=== PATIENT | female | born 1945 | race Caucasian/White ===

== ENCOUNTER 2021-02-22 13:33 | Inpatient (IN) | payer MEDICARE ==
[~2021-02-22] VITALS: Ht 167.6 cm; Wt 49.7 kg
[2021-02-22] MEDS ORDERED: MIRALAX *UNIT DOSE* 17GM PACKET PO PRN (14:50)
[2021-02-22] MEDS ORDERED: BISACODYL 10 MG SUPP PR PRN (14:50)
[2021-02-22] MEDS ORDERED: ACETAMINOPHEN TAB 650MG DOSE (2X325MG) PO PRN (14:50)
[2021-02-22 15:55] VITALS: BP 165/71
[2021-02-22] MEDS ORDERED: BRIL90TA PO (15:55)
[2021-02-22] MEDS ORDERED: LEVO88TA3 PO (15:55)
[2021-02-22] MEDS ORDERED: TREL1AER INH (15:55)
[2021-02-22] MEDS ORDERED: D3 S1CAP3 PO (15:55)
[2021-02-22] MEDS ORDERED: LOSA25TA14 PO (15:55)
[2021-02-22] MEDS ORDERED: METO1TAB32 PO (15:55)
[2021-02-22] MEDS ORDERED: FAMO1TAB11 PO (15:55)
[2021-02-22] MEDS ORDERED: ATOR80TA59 PO (15:55)
[2021-02-22] MEDS ORDERED: VENTAER INH (15:56)
--- NOTE | 2021-02-22 16:03 | HPEPDOC ---
Word Processing Supervisor Note DATE OF ADMISSION: 02-22-21 DATE OF SERVICE: 02-23-21 TIME OF ADMISSION: Please refer to physician's admission order. SOURCE OF ADMISSION INFORMATION: [facility] record and patient CHIEF COMPLAINT: stroke s.p right CEA HISTORY OF PRESENT ILLNESS: 75 F pmh COPD, HTN, DM, CAD s/p stents, Hypothryoidism, laryngeal cancer s/p laryngeal/neck radiation, chronic dysphagia, barretts espophagus with multiple esophageal dilatations was admitted to [facility] on 02-06-21 with left sided weakness and diagnosed with stroke in the setting of right ICA stenosis. MRI showed, "Findings consistent with small distal branch acute, likely embolic ischemic infarct involving the right frontoparietal and parieto-occipital regions. Few small scattered acute infarct in the deep white matter tract is also present." She underwent a right ICA stenting on 02-15-21 and started on ASA and Brillinta for 6 months. She developed an aspiration PNA requiring supplemental oxygen and started on IV zosyn with CT thorax showing a right upper lobe mass with bronchus obstruction. She was instructed t follow up with her thoracic surgeon in the [facility] for wedge resection vs lobectomy in February 2021. She had mobility and ADL impairments and deemed medically appropriate for discharge to ARU on 02-22-21. REVIEW OF SYSTEMS: The following is a completed review of systems and has been reviewed. Review of systems otherwise unremarkable. PAIN: Patient self reports no pain EYES: No recent vision changes. EARS, NOSE, & THROAT:+ dysphagia CARDIOVASCULAR: Denies chest pain or palpitations PULMONARY: Denies shortness of breath GASTROINTESTINAL: Denies constipation/diarrhea GENITOURINARY: denies dysuria MUSCULOSKELETAL: left sided paresis NEUROLOGICAL: left sided paresis HEMATOLOGICAL: denies easy bruising SKIN:intact PSYCHIATRIC: Unremarkable All other review of systems found to be negative. PAST MEDICAL HISTORY: as per HPI PAST SURGICAL HISTORY: As per HPI and tonsillectomy ALLERGIES: Please see below. MEDICATIONS: Please see below. SOCIAL HISTORY: no etoh/illicit drugs/smoking DIET: level 2 and nectar PHYSICAL EXAMINATION: VITAL SIGNS: Please see below. GENERAL: Pleasant and cooperative. No acute distress. thin HEENT: PERRL. Extraocular movements intact. Clear conjunctiva CARDIOVASCULAR: Regular rate and rhythm. No murmurs, rubs, or gallops LUNGS: Clear to auscultation bilaterally. No wheezes. No rhonchi ABDOMEN: Soft, nontender, nondistended. Positive bowel sounds. Normal active bowel sounds NEUROLOGICAL: Alert and oriented times three. Cranial nerves II through XII grossly intact. Sensation decreased to light touch with extinction EXTREMITIES: 5\\5 strength bilateral RUE, left elbow flexor/exteniosr 3/5, wrist 1/5, fire management specialist 2/5 5\\5 strength right lower extremity. 5-/5 strength in left lower extremity. LABORATORY DATA: Please see below. IMAGING:Imaging documentation personally reviewed by record FUNCTIONAL STATUS: Premorbid: Independent with all activities of daily life as well as mobility On Admission: contact guard- standby for bed mobility, ambulation, dressing, toileting, functional transfers GOALS: Mod-I for bed mobility, functional transfers, ambulation, dressing, to ileting, bathing ASSESSMENT:75-year-old F with past medical history of laryngeal cancer s/p radiation, COPD who presents status post right MCA stroke s/p right ICA stenting PLAN: 1. 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 Neuro- right MCA infarct s/p right ICA stenting 02-15-21, c/u ASA and brillinta, statin as well for secondary stroke prevention 3. CArdiac- hx of HTN c/u BP meds -Hx of CAd s/p stent on ASA 4. Resp- aspirations s/p 5 days Zosyn, will c/u Augmentin, monitor for worsening infection- Combivent, incentive spirometry, guaifenesin -right upper lobe mass- f/u thoracic surgeon on d/c -COPD- c/u flovent 5. endo- hypothyroidism c/ u synthroid 6. GI ppx- pepcid 7. DVT ppx- lovenox 8. Pain- tylenol prn 9. Dispo- TBD POST ADMISSION PHYSICIAN EVALUATION: Medical and functional status: Description of medical status, medical assessment: As above. Rehabilitation diagnosis and current and prior cold morbid medical conditions as above. Risk of complications and plans to mitigate them as above. Description of functional status current status is as above. Prior status as above. Status compared to preadmission: There are no clinically significant differences between the patient's current status and the information described on the preadmission screening document. Treatment plan anticipated: Treatment plan is as described above. Required disciplines including physical therapy, occupational therapy, others as noted above Intensity of services: 3 hours a day, 6 days a week. Special considerations: There are no specific special or safety considerations that would likely preclude immediate implementation of an intensive rehabilitation program or subsequently influence the plan of care ATTESTATION: Considering all the information above, it is my best judgment that this patient requires intensive rehabilitation therapy as described above and an inpatient hospital environment due to the complexity of nursing, medical, and rehabilitation needs required by the patient. Furthermore, this patient can reasonably be expected to participate in an benefit from an inpatient rehabilitation stay with an interdisciplinary team approach to the delivery of rehabilitation care under the direction and supervision of rehabilitation physician PROGNOSIS: Excellent ESTIMATED LENGTH OF STAY:7-8 days. PROJECTED DISCHARGE DESTINATION: Home with family support and any durable medical equipment required to increase functional safety and mobility. TIME SPENT COUNSELING AND COORDINATING INITIAL CARE: Greater than 70 minutes. Vital Signs Vital Signs Date Time Temp Pulse Resp B/P (MAP) Pulse Ox O2 Delivery O2 Flow Rate FiO2 02/22/21 15:55 97.4 82 18 165/71 (102) 94 Room Air Home Medications Scheduled Atorvastatin Calcium (Atorvastatin Calcium) 80 Mg Tablet, 80 MG PO DAILY, (Reported) Cholecalciferol (Vitamin D3) (Vitamin D3) 50 Mcg Capsule, 2,000 UNITS PO DAILY, (Reported) Famotidine (Famotidine) 20 Mg Tablet, 20 MG PO BID, (Reported) Fluticasone/Umeclidin/Vilanter (Trelegy Ellipta 100-62.5-25) 1 Each Blst.w.dev, 1 PUFF INH DAILY, (Reported) Levothyroxine Sodium (Levothyroxine Sodium) 88 Mcg Tablet, 88 MCG PO DAILY, (Reported) Losartan Potassium (Losartan Potassium) 25 Mg Tablet, 25 MG PO DAILY, (Reported) Metoprolol Succinate (Metoprolol Succinate) 25 Mg Tab.er.24h, 25 MG PO DAILY, (Reported) Ticagrelor Base (Brilinta) 90 Mg Tablet, 90 MG PO BID, (Reported) Scheduled PRN Albuterol Sulfate (Ventolin Hfa) 18 Gm Hfa.aer.ad, 2 PUFF INH QID PRN for SHORTNESS OF BREATH, (Reported) Allergies Coded Allergies: cefazolin (Verified Adverse Reaction, Mild, N/V, 02/22/21) A-FIB/CHADSVASC A-FIB History Current/History of A-Fib/PAF?: No Current PO Anticoag Therapy: No MONICA CORTEZ MD February 22, 2021 16:03
[2021-02-22] MEDS: REMEDY PHYTOPLEX Z-GUARD PASTE 113GM TUBE (FROM STOREROOM PRODUCT) TOP SCH ×2 (18:06→21:00)
[2021-02-22] MEDS: LACTOBACILLUS ACIDOPHILUS CAP (BACID) PO SCH ×2 (18:06→20:46)
[2021-02-22] MEDS: FLUTICASONE HFA 110 MCG 12 GM INHALER (FLOVENT) INH SCH (20:00)
[2021-02-22] MEDS: COMBIVENT RESPIMAT 100-20MCG INHALER 4GM INH SCH (20:00)
[2021-02-22 20:15] VITALS: BP 160/73
[2021-02-22] MEDS: TICAGRELOR 90 MG TABLET (BRILINTA) PO SCH (20:46)
[2021-02-22] MEDS: DOCUSATE SODIUM 100MG CAPSULE PO SCH (21:00)
[2021-02-22] MEDS: guaiFENesin 200 MG TAB PO SCH (21:00)
[2021-02-22] MEDS: SENNA 8.6 MG TAB (SENOKOT) PO SCH (21:00)
[2021-02-23] MEDS: **hydrALAZINE HCL** 25 MG TAB PO SCH ×3 (00:15→12:00)
[2021-02-23 05:56] VITALS: BP 134/64
[2021-02-23] MEDS: LEVOTHYROXINE 88MCG TABLET (0.088 MG) PO SCH (06:30)
[2021-02-23 07:05] LABS: BASO % 0.2 % (0.0-1.0); EOS # 0.4 10^3/uL (0.0-0.5); HEMATOCRIT 40.7 % (36.0-47.0); HEMOGLOBIN 12.5 g/dl (12.0-15.5); LYMPH # 0.7 10^3/uL (1.5-5.0); MEAN CORPUSCULAR HEMOGLOBIN 29.1 pg (27.0-33.0); MEAN CORPUSCULAR HGB CONC 30.7 g/dl (32.0-36.5); MEAN CORPUSCULAR VOLUME 94.9 fl (80.0-96.0); MONO # 0.6 10^3/uL (0.0-0.8); NEUTROPHILS # 7.3 10^3/uL (1.5-8.5); NEUTROPHILS % 80.4 % (36.0-66.0); PLATELET COUNT, AUTOMATED 365 10^3/uL (150-450); RED BLOOD COUNT 4.29 10^6/uL (4.00-5.40)
[2021-02-23] MEDS: COMBIVENT RESPIMAT 100-20MCG INHALER 4GM INH SCH ×3 (07:14→19:56)
[2021-02-23] MEDS: FLUTICASONE HFA 110 MCG 12 GM INHALER (FLOVENT) INH SCH ×2 (07:14→19:58)
[2021-02-23 07:29] LABS: BILIRUBIN,TOTAL 0.6 MG/DL (0.2-1.0); CALCIUM LEVEL 8.9 MG/DL (8.8-10.2); CREATININE FOR GFR 0.99 MG/DL (0.55-1.30); GLOMERULAR FILTRATION RATE 58.5 (>39); POTASSIUM SERUM 3.7 MEQ/L (3.5-5.1); TOTAL PROTEIN 6.5 GM/DL (6.4-8.2)
[2021-02-23] MEDS: REMEDY PHYTOPLEX Z-GUARD PASTE 113GM TUBE (FROM STOREROOM PRODUCT) TOP SCH ×3 (09:00→21:00)
[2021-02-23] MEDS: guaiFENesin 200 MG TAB PO SCH ×3 (09:00→21:00)
[2021-02-23] MEDS: DOCUSATE SODIUM 100MG CAPSULE PO SCH ×2 (09:00→21:00)
[2021-02-23] MEDS: ASPIRIN 81MG ENTERIC TABLET PO SCH (09:11)
[2021-02-23] MEDS: FAMOTIDINE 20 MG TAB PO SCH (09:11)
[2021-02-23] MEDS: VITAMIN D 1,000 INTERNATIONAL UNITS TABLET PO SCH (09:11)
[2021-02-23] MEDS: ATORVASTATIN 20 MG TAB PO SCH (09:12)
[2021-02-23] MEDS: LOSARTAN 25 MG TAB PO SCH (09:13)
[2021-02-23] MEDS: AUGMENTIN 875 MG TAB PO SCH ×2 (09:13→21:17)
[2021-02-23] MEDS: METOPROLOL SUCC *XL* 25MG TAB (TopROL *XL*) PO SCH (09:13)
[2021-02-23] MEDS: TICAGRELOR 90 MG TABLET (BRILINTA) PO SCH ×2 (09:16→21:17)
[2021-02-23] MEDS: LACTOBACILLUS ACIDOPHILUS CAP (BACID) PO SCH ×4 (09:16→21:17)
[2021-02-23 14:00] VITALS: BP 130/63
--- NOTE | 2021-02-23 14:56 | HPEPDOC ---
[facility] Medical History & Physical Date of Admission February 22, 2021 Date of Service: February 23, 2021 Attending Physician: Modesta Garza MD History and Physical MEDICAL H&P HISTORY OF PRESENT ILLNESS: Patient is a 75-year-old female with PMH of hypertension, COPD, diabetes mellitus, coronary artery disease status post stenting, history of laryngeal cancer status post radiation with multiple esophageal dilatations, hypothyroidism who was admitted on 02/06/2021 to [facility] stroke service for R MCA CVA. She was found to have severe carotid stenosis. The patient was taken for surgery 02/15/2021 and during the procedure severe stenosis was seen at the right carotid ostium and procedure was converted to a right carotid stent placement with pre-stent balloon angioplasty with distal embolic protection. The patient did well during the procedure without any complications. She was kept on direct antiplatelet therapy and aspirin and Brilinta. Her hospital course was complicated secondary to aspiration being identified by modified barium swallow on 02/14/2021. Patient was diagnosed with new lung mass obstructing the bronchus intermedius. She was transferred to medicine service for further workup and management after having a decline in her respiration status. She was treated for pneumonia for 6 days and she improved clinically to room air. There is also noted new mediastinal lymph nodes compared to 10/09/2020, Pulmonology was consulted. She could not undergo EBUS with FNA of the lymph nodes due to recent stent placement in the right carotid artery and the risk of stroke would be too high stopped the direct antiplatelet therapy. Neurosurgery recommended at least 1 month direct antiplatelet therapy before stopping to be considered reasonable. The patient has a history of dysphasia 2/2 to history of laryngeal cancer status post radiation, stenosis and requiring multiple esophageal dilations in the past. GI was consulted regarding possible dilated dictation being required for esophageal strictures. Conservative management was recommended again because the patient was on direct antiplatelet therapy. It was recommended that she follow-up with her GI doctor and get an EGD with possible dilation if needed. It is recommended for her to continue pured nectar thick diet which she has been tolerating well as well as speech therapy. The patient was evaluated by physical therapy at [facility] who recommended continued inpatient rehabilitation after discharge. She comes to [facility] without any complaints. She is hemodynamically stable. She denies chest pain, shortness of breath, nausea, vomiting, fevers, chills, abdominal pain, lightheadedness or dizziness. REVIEW OF SYSTEMS: Neg except for what is mentioned above PAST MEDICAL HISTORY: R MCA CVA with left hand/forearm deficits Carotid stenosis, symptomatic, right Lung mass obstructing bronchus intermedius, needs EBUS with FNA by pulmonary at later time. Suspicious for neoplasm HTN DM type II CAD s/p stent Aspiration 2/2 to dysphagia COPD History of laryngeal cancer status post radiation Hx of multiple esophageal stricture s/p esophageal dilatations Hypothyroidism PAST SURGICAL HISTORY: Cardiac stenting Esophageal dilatations right carotid stent placement with pre-stent balloon angioplasty with distal embolic protection FAMILY HISTORY: no significant history ALLERGIES: Please see below. HOME MEDICATIONS: Please see below. PHYSICAL EXAMINATION: VS: Please see below CONSTITUTIONAL: No acute distress, resting comfortably, AAO x 3 EYES: PERRLA, EOM intact HENT, MOUTH: Normocephalic, atraumatic, moist mucous membranes, NECK: SUPPLE, no JVD, no lymphadenopathy, no carotid bruit CV: Regular rate and rhythm, S1S2 normal, no murmurs/rubs/gallops RESPIRATORY: Clear to auscultation bilaterally, no rales/rhonchi/wheezes GI: BS positive in 4 quadrants, soft, nontender, nondistended, no rebound or guarding, no organomegaly : Deferred MUSCULOSKELETAL: Normal ROM. No cyanosis, clubbing, swelling, joint deformity, extremity edema INTEGUMENTARY: Intact, no rashes, no lesions, no erythema NEUROLOGIC: Cranial Nerves II-XII are intact, no focal deficits PSYCHIATRIC: Mood and affect are normal LABORATORY DATA: Please see below IMAGING: See records ASSESSMENT: 75-year-old female with PMH of hypertension, COPD, diabetes mellitus, coronary artery disease status post stenting, history of laryngeal cancer status post radiation with multiple esophageal dilatations, hypothyroidism admitted to ARU for continued rehabilitation. PLAN: R MCA CVA with left hand/forearm deficits 2/2 to carotid stenosis s/p right carotid stent placement with pre-stent balloon angioplasty -C/w AP therapy, statin, ST/PT/OT -Diet modifications per ST -Goal is home when appropriate for discharge -ASA, statin, Brilinta Lung mass obstructing bronchus intermedius, suspicious for neoplasm -Will need EBUS with FNA by pulmonary at later time. -[facility] at [facility] is noted to be called in 1 week after discharge to arrange for bx of LN for possible malignancy -Currently saturating well on RA HTN -Stable -C/w home meds DM type II -Not currently on medications -BS 103 CAD s/p stent -c/w BB, statin, ASA, brilinta Hx of aspiration 2/2 to dysphagia, esophageal strictures -diet per ST -Due to folllow up o/p with GI after DAPT completed COPD -Stable -C/w current meds History of laryngeal cancer status post radiation -F/u o/p Hypothyroidism -C/w treatment GERD -C/w current meds DVT px -On ASA, brilinta- no heparin product DISPOSITION: Thank you kindly for the consult. Will continue to follow regularly and as needed. Vital Signs Vital Signs Date Time Temp Pulse Resp B/P (MAP) Pulse Ox O2 Delivery O2 Flow Rate FiO2 02/23/21 09:13 82 117/55 02/23/21 05:56 97.5 18 93 Room Air Laboratory Data Labs 24H Laboratory Tests 2 02/22/21 17:12: Bedside Glucose (Misc Panel) 126H 02/23/21 06:35: Immature Granulocyte % (Auto) 0.4, Neutrophils (%) (Auto) 80.4H, Lymphocytes (%) (Auto) 8.0L, Monocytes (%) (Auto) 7.0, Eosinophils (%) (Auto) 4.0H, Basophils (%) (Auto) 0.2, Neutrophils # (Auto) 7.3, Lymphocytes # (Auto) 0.7L, Monocytes # (Auto) 0.6, Eosinophils # (Auto) 0.4, Basophils # (Auto) 0.0, Nucleated Red Blood Cells % (auto) 0.0, Anion Gap 6L, Glomerular Filtration Rate 58.5, Calcium Level 8.9, Total Bilirubin 0.6, Aspartate Amino Transf (AST/SGOT) 16, Alanine Aminotransferase (ALT/SGPT) 18, Alkaline Phosphatase 56, Total Protein 6.5, Albumin 3.0L, Albumin/Globulin Ratio 0.9L CBC/BMP Laboratory Tests 02/23/21 06:35 Home Medications Scheduled Atorvastatin Calcium (Atorvastatin Calcium) 80 Mg Tablet, 80 MG PO DAILY Cholecalciferol (Vitamin D3) (Vitamin D3) 50 Mcg Capsule, 2,000 UNITS PO DAILY Famotidine (Famotidine) 20 Mg Tablet, 20 MG PO BID Fluticasone/Umeclidin/Vilanter (Trelegy Ellipta 100-62.5-25) 1 Each Blst.w.dev, 1 PUFF INH DAILY Levothyroxine Sodium (Levothyroxine Sodium) 88 Mcg Tablet, 88 MCG PO DAILY Losartan Potassium (Losartan Potassium) 25 Mg Tablet, 25 MG PO DAILY Metoprolol Succinate (Metoprolol Succinate) 25 Mg Tab.er.24h, 25 MG PO DAILY Ticagrelor Base (Brilinta) 90 Mg Tablet, 90 MG PO BID Scheduled PRN Albuterol Sulfate (Ventolin Hfa) 18 Gm Hfa.aer.ad, 2 PUFF INH QID PRN for SHORTNESS OF BREATH Allergies Coded Allergies: cefazolin (Verified Adverse Reaction, Mild, N/V, 02/22/21) A-FIB/CHADSVASC A-FIB History Current/History of A-Fib/PAF?: No Current PO Anticoag Therapy: No Age/Risk Factor Scoring CHADSVASC: CHADSVASC Response (Comments) Value Age Risk Factor Age 65-74 years old 1 Gender Risk Factor Female 1 Hx of CHF No 0 Hx of HTN Yes 1 Hx of Stroke/TIA/or VTE Yes 2 Hx of Diabetes Yes 1 Hx of Vascular Disease No 0 Total 6 Treatment Treatment ordered: NONE Other anticoagulant ordered: none Modesta Garza MD February 23, 2021 14:56
[2021-02-23 20:19] VITALS: BP 159/81
[2021-02-23] MEDS: SENNA 8.6 MG TAB (SENOKOT) PO SCH (21:00)
[2021-02-24] MEDS: LEVOTHYROXINE 88MCG TABLET (0.088 MG) PO SCH (05:41)
[2021-02-24 06:06] VITALS: BP 150/68
[2021-02-24] MEDS: FLUTICASONE HFA 110 MCG 12 GM INHALER (FLOVENT) INH SCH ×2 (07:38→20:11)
[2021-02-24] MEDS: COMBIVENT RESPIMAT 100-20MCG INHALER 4GM INH SCH ×3 (07:38→20:11)
[2021-02-24] MEDS: REMEDY PHYTOPLEX Z-GUARD PASTE 113GM TUBE (FROM STOREROOM PRODUCT) TOP SCH ×3 (09:00→20:37)
[2021-02-24] MEDS: DOCUSATE SODIUM 100MG CAPSULE PO SCH ×2 (09:00→20:36)
[2021-02-24] MEDS: FAMOTIDINE 20 MG TAB PO SCH (09:28)
[2021-02-24] MEDS: ATORVASTATIN 20 MG TAB PO SCH (09:28)
[2021-02-24] MEDS: ASPIRIN 81MG ENTERIC TABLET PO SCH (09:28)
[2021-02-24] MEDS: VITAMIN D 1,000 INTERNATIONAL UNITS TABLET PO SCH (09:28)
[2021-02-24] MEDS: guaiFENesin 200 MG TAB PO SCH ×2 (09:28→20:37)
[2021-02-24] MEDS: LACTOBACILLUS ACIDOPHILUS CAP (BACID) PO SCH ×4 (09:30→20:36)
[2021-02-24] MEDS: LOSARTAN 25 MG TAB PO SCH (09:31)
[2021-02-24] MEDS: METOPROLOL SUCC *XL* 25MG TAB (TopROL *XL*) PO SCH (09:31)
[2021-02-24] MEDS: AUGMENTIN 875 MG TAB PO SCH ×2 (09:43→20:36)
[2021-02-24] MEDS: TICAGRELOR 90 MG TABLET (BRILINTA) PO SCH ×2 (09:43→20:37)
[2021-02-24 12:38] LABS: BASO % 0.2 % (0.0-1.0); EOS # 0.2 10^3/uL (0.0-0.5); EOS % 2.5 % (0.0-3.0); HEMATOCRIT 37.7 % (36.0-47.0); HEMOGLOBIN 11.7 g/dl (12.0-15.5); LYMPH # 0.8 10^3/uL (1.5-5.0); MEAN CORPUSCULAR HEMOGLOBIN 29.1 pg (27.0-33.0); MEAN CORPUSCULAR VOLUME 93.8 fl (80.0-96.0); MONO # 0.5 10^3/uL (0.0-0.8); MONO % 6.1 % (2.0-8.0); NEUTROPHILS # 6.8 10^3/uL (1.5-8.5); NEUTROPHILS % 81.7 % (36.0-66.0); PLATELET COUNT, AUTOMATED 308 10^3/uL (150-450); RED BLOOD COUNT 4.02 10^6/uL (4.00-5.40); WHITE BLOOD COUNT 8.3 10^3/uL (4.0-10.0)
[2021-02-24 12:59] LABS: CALCIUM LEVEL 9.3 MG/DL (8.8-10.2); CREATININE FOR GFR 1.06 MG/DL (0.55-1.30); GLOMERULAR FILTRATION RATE 54.1 (>39); POTASSIUM SERUM 3.7 MEQ/L (3.5-5.1)
[2021-02-24 14:00] VITALS: BP 107/51
[2021-02-24 20:00] VITALS: BP 167/76
[2021-02-24] MEDS: SENNA 8.6 MG TAB (SENOKOT) PO SCH (20:37)
[2021-02-25] MEDS: LEVOTHYROXINE 88MCG TABLET (0.088 MG) PO SCH (05:34)
[2021-02-25 05:44] VITALS: BP 113/55
[2021-02-25] MEDS: COMBIVENT RESPIMAT 100-20MCG INHALER 4GM INH SCH ×3 (08:21→20:39)
[2021-02-25] MEDS: FLUTICASONE HFA 110 MCG 12 GM INHALER (FLOVENT) INH SCH ×2 (08:22→20:39)
[2021-02-25] MEDS: LACTOBACILLUS ACIDOPHILUS CAP (BACID) PO SCH ×4 (08:51→20:04)
[2021-02-25] MEDS: AUGMENTIN 875 MG TAB PO SCH ×2 (08:51→20:04)
[2021-02-25] MEDS: DOCUSATE SODIUM 100MG CAPSULE PO SCH ×3 (08:51→20:03)
[2021-02-25] MEDS: TICAGRELOR 90 MG TABLET (BRILINTA) PO SCH ×2 (08:51→20:04)
[2021-02-25] MEDS: METOPROLOL SUCC *XL* 25MG TAB (TopROL *XL*) PO SCH (08:51)
[2021-02-25] MEDS: VITAMIN D 1,000 INTERNATIONAL UNITS TABLET PO SCH (08:52)
[2021-02-25] MEDS: ASPIRIN 81MG ENTERIC TABLET PO SCH (08:52)
[2021-02-25] MEDS: FAMOTIDINE 20 MG TAB PO SCH (08:52)
[2021-02-25] MEDS: guaiFENesin 200 MG TAB PO SCH ×2 (08:52→20:04)
[2021-02-25] MEDS: ATORVASTATIN 20 MG TAB PO SCH (08:52)
[2021-02-25] MEDS: LOSARTAN 25 MG TAB PO SCH (08:52)
[2021-02-25] MEDS: REMEDY PHYTOPLEX Z-GUARD PASTE 113GM TUBE (FROM STOREROOM PRODUCT) TOP SCH ×3 (08:54→20:04)
[2021-02-25 14:00] VITALS: BP 148/68
[2021-02-25 20:00] VITALS: BP 162/73
[2021-02-25] MEDS: SENNA 8.6 MG TAB (SENOKOT) PO SCH (20:04)
[2021-02-26 05:27] VITALS: BP 122/59
[2021-02-26] MEDS: LEVOTHYROXINE 88MCG TABLET (0.088 MG) PO SCH (05:34)
[2021-02-26] MEDS: COMBIVENT RESPIMAT 100-20MCG INHALER 4GM INH SCH ×3 (07:15→18:04)
[2021-02-26] MEDS: FLUTICASONE HFA 110 MCG 12 GM INHALER (FLOVENT) INH SCH ×2 (07:15→18:04)
[2021-02-26] MEDS: ASPIRIN 81MG ENTERIC TABLET PO SCH (08:02)
[2021-02-26] MEDS: AUGMENTIN 875 MG TAB PO SCH ×2 (08:02→20:36)
[2021-02-26] MEDS: FAMOTIDINE 20 MG TAB PO SCH (08:02)
[2021-02-26] MEDS: ATORVASTATIN 20 MG TAB PO SCH (08:02)
[2021-02-26] MEDS: TICAGRELOR 90 MG TABLET (BRILINTA) PO SCH ×2 (08:02→20:36)
[2021-02-26] MEDS: VITAMIN D 1,000 INTERNATIONAL UNITS TABLET PO SCH (08:02)
[2021-02-26] MEDS: guaiFENesin 200 MG TAB PO SCH ×2 (08:02→20:36)
[2021-02-26] MEDS: LACTOBACILLUS ACIDOPHILUS CAP (BACID) PO SCH ×4 (08:02→20:36)
[2021-02-26] MEDS: REMEDY PHYTOPLEX Z-GUARD PASTE 113GM TUBE (FROM STOREROOM PRODUCT) TOP SCH ×3 (08:03→20:36)
[2021-02-26] MEDS: LOSARTAN 25 MG TAB PO SCH (08:03)
[2021-02-26] MEDS: METOPROLOL SUCC *XL* 25MG TAB (TopROL *XL*) PO SCH (08:03)
[2021-02-26] MEDS: DOCUSATE SODIUM 100MG CAPSULE PO SCH ×2 (08:04→20:36)
[2021-02-26 14:00] VITALS: BP 116/55
[2021-02-26 20:30] VITALS: BP 146/81
[2021-02-26] MEDS: SENNA 8.6 MG TAB (SENOKOT) PO SCH (20:36)
[2021-02-27] MEDS: LEVOTHYROXINE 88MCG TABLET (0.088 MG) PO SCH (05:45)
[2021-02-27 06:39] VITALS: BP 145/79
[2021-02-27] MEDS: FLUTICASONE HFA 110 MCG 12 GM INHALER (FLOVENT) INH SCH ×2 (07:35→19:31)
[2021-02-27] MEDS: COMBIVENT RESPIMAT 100-20MCG INHALER 4GM INH SCH ×3 (07:35→19:31)
[2021-02-27 07:56] LABS: BASO # 0.1 10^3/uL (0.0-0.2); BASO % 0.8 % (0.0-1.0); EOS # 0.3 10^3/uL (0.0-0.5); EOS % 4.5 % (0.0-3.0); HEMATOCRIT 42.8 % (36.0-47.0); HEMOGLOBIN 13.2 g/dl (12.0-15.5); MEAN CORPUSCULAR HEMOGLOBIN 29.5 pg (27.0-33.0); MEAN CORPUSCULAR HGB CONC 30.8 g/dl (32.0-36.5); MEAN CORPUSCULAR VOLUME 95.5 fl (80.0-96.0); MONO # 0.6 10^3/uL (0.0-0.8); MONO % 8.8 % (2.0-8.0); NEUTROPHILS # 4.5 10^3/uL (1.5-8.5); NEUTROPHILS % 70.3 % (36.0-66.0); PLATELET COUNT, AUTOMATED 322 10^3/uL (150-450); RED BLOOD COUNT 4.48 10^6/uL (4.00-5.40); WHITE BLOOD COUNT 6.4 10^3/uL (4.0-10.0)
[2021-02-27 08:04] LABS: CALCIUM LEVEL 8.9 MG/DL (8.8-10.2); CREATININE FOR GFR 1.02 MG/DL (0.55-1.30); GLOMERULAR FILTRATION RATE 56.6 (>39); POTASSIUM SERUM 3.7 MEQ/L (3.5-5.1)
[2021-02-27] MEDS: REMEDY PHYTOPLEX Z-GUARD PASTE 113GM TUBE (FROM STOREROOM PRODUCT) TOP SCH ×3 (09:00→21:00)
[2021-02-27] MEDS: DOCUSATE SODIUM 100MG CAPSULE PO SCH ×3 (09:00→22:04)
[2021-02-27] MEDS: ASPIRIN 81MG ENTERIC TABLET PO SCH (09:12)
[2021-02-27] MEDS: AUGMENTIN 875 MG TAB PO SCH ×2 (09:12→22:04)
[2021-02-27] MEDS: LACTOBACILLUS ACIDOPHILUS CAP (BACID) PO SCH ×4 (09:12→22:04)
[2021-02-27] MEDS: guaiFENesin 200 MG TAB PO SCH ×2 (09:12→21:00)
[2021-02-27] MEDS: FAMOTIDINE 20 MG TAB PO SCH (09:13)
[2021-02-27] MEDS: ATORVASTATIN 20 MG TAB PO SCH (09:13)
[2021-02-27] MEDS: TICAGRELOR 90 MG TABLET (BRILINTA) PO SCH ×2 (09:13→22:04)
[2021-02-27] MEDS: VITAMIN D 1,000 INTERNATIONAL UNITS TABLET PO SCH (09:13)
[2021-02-27] MEDS: METOPROLOL SUCC *XL* 25MG TAB (TopROL *XL*) PO SCH (09:14)
[2021-02-27] MEDS: LOSARTAN 25 MG TAB PO SCH (09:14)
[2021-02-27] MEDS ORDERED: RISATAB3 PO (11:32)
[2021-02-27] MEDS ORDERED: ASPI-551 PO (11:32)
[2021-02-27] MEDS ORDERED: LEVO88TA3 PO (11:32)
[2021-02-27] MEDS ORDERED: ATOR80TA59 PO (11:32)
[2021-02-27] MEDS ORDERED: D3 S1CAP3 PO (11:32)
[2021-02-27] MEDS ORDERED: PANT40TA29 PO (11:32)
[2021-02-27] MEDS ORDERED: VENTAER INH (11:32)
[2021-02-27] MEDS ORDERED: PRED5TA PO (11:32)
[2021-02-27] MEDS ORDERED: TREL1AER INH (11:32)
[2021-02-27] MEDS ORDERED: BRIL90TA PO (11:32)
[2021-02-27] MEDS ORDERED: LOSA25TA14 PO (11:32)
[2021-02-27] MEDS ORDERED: METO1TAB32 PO (11:32)
[2021-02-27] MEDS ORDERED: FAMO40TA3 PO (12:14)
[2021-02-27] MEDS: predniSONE 5 MG TAB PO SCH (12:58)
[2021-02-27 14:00] VITALS: BP 137/64
[2021-02-27] MEDS: SUCRALFATE SUSP 1GM/10ML UD PO SCH (17:03)
[2021-02-27 20:30] VITALS: BP 153/73
[2021-02-27] MEDS ORDERED: FAMOTIDINE 20 MG TAB PO SCH (21:00)
[2021-02-27] MEDS ORDERED: PANTOPRAZOLE 40MG TAB (PROTONIX) PO SCH (21:00)
[2021-02-27] MEDS: SENNA 8.6 MG TAB (SENOKOT) PO SCH (22:04)
--- NOTE | 2021-02-27 23:24 | IPNPDOC ---
PM&R Progress Note DATE OF SERVICE: February 24, 2021 Teaching Music Lessons Progress Note Subjective: Patient reporting she feels she is stronger and steady on her feet. She is looking forward to room privileges. REVIEW OF SYSTEMS: The following is a completed review of systems and has been reviewed. Review of systems otherwise unremarkable. PAIN: Patient self reports no pain EYES: No recent vision changes. EARS, NOSE, & THROAT:+ dysphagia CARDIOVASCULAR: Denies chest pain or palpitations PULMONARY: Denies shortness of breath GASTROINTESTINAL: Denies constipation/diarrhea GENITOURINARY: denies dysuria MUSCULOSKELETAL: left sided paresis NEUROLOGICAL: left sided paresis HEMATOLOGICAL: denies easy bruising SKIN:intact PSYCHIATRIC: Unremarkable All other review of systems found to be negative. PHYSICAL EXAMINATION: VITAL SIGNS: Please see below. GENERAL: Pleasant and cooperative. No acute distress. thin HEENT: PERRL. Extraocular movements intact. Clear conjunctiva CARDIOVASCULAR: Regular rate and rhythm. No murmurs, rubs, or gallops LUNGS: Clear to auscultation bilaterally. No wheezes. No rhonchi ABDOMEN: Soft, nontender, nondistended. Positive bowel sounds. Normal active bowel sounds NEUROLOGICAL: Alert and oriented times three. Cranial nerves II through XII grossly intact. Sensation decreased to light touch with extinction EXTREMITIES: 5\5 strength bilateral RUE, left elbow flexor/exteniosr 3/5, wrist 1/5, sidewalk inspector 2/5 5\5 strength right lower extremity. 5-/5 strength in left lower extremity. LABORATORY DATA: Please see below. ASSESSMENT:75-year-old F with past medical history of laryngeal cancer s/p radiation, COPD who presents status post right MCA stroke s/p right ICA stenting PLAN: 1. 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 Neuro- right MCA infarct s/p right ICA stenting 02-15-21, c/u ASA and brillinta, statin as well for secondary stroke prevention 3. CArdiac- hx of HTN c/u BP meds -Hx of CAd s/p stent on ASA 4. Resp- aspirations s/p 5 days Zosyn, will c/u Augmentin, monitor for worsening infection- Combivent, incentive spirometry, guaifenesin -right upper lobe mass- f/u thoracic surgeon on d/c -COPD- c/u flovent 5. endo- hypothyroidism c/ u synthroid 6. GI ppx- pepcid 7. DVT ppx- lovenox 8. Pain- tylenol prn 9. Dispo- 02-28-21 to to home, progressing towards goals Allergies Coded Allergies: cefazolin (Verified Adverse Reaction, Mild, N/V, 02/22/21) Vital Signs Vital Signs Date Time Temp Pulse Resp B/P (MAP) Pulse Ox O2 Delivery O2 Flow Rate FiO2 02/27/21 20:30 97.6 92 18 153/73 (99) 94 Room Air Laboratory Data CBC/BMP Laboratory Tests 02/27/21 07:12 02/27/21 07:13 Labs 24H Laboratory Tests 2 02/27/21 07:12: Anion Gap 8, Glomerular Filtration Rate 56.6, Calcium Level 8.9 02/27/21 07:13: Immature Granulocyte % (Auto) 0.6, Neutrophils (%) (Auto) 70.3H, Lymphocytes (%) (Auto) 15.0L, Monocytes (%) (Auto) 8.8H, Eosinophils (%) (Auto) 4.5H, Basophils (%) (Auto) 0.8, Neutrophils # (Auto) 4.5, Lymphocytes # (Auto) 1.0L, Monocytes # (Auto) 0.6, Eosinophils # (Auto) 0.3, Basophils # (Auto) 0.1, Nucleated Red Blood Cells % (auto) 0.0 Current Medications Current Medications Current Medications Medications (Trade) Dose Ordered Sig/Tess Route PRN Reason Start Time Stop Time Status Last Admin Dose Admin Acetaminophen (Tylenol Tab) 650 mg Q4HP PRN PO MILD PAIN (PS 1-4) 02/22/21 14:50 Albuterol/ Ipratropium (Combivent Respimat 100-20mcg) 1 puff RTID INH 02/22/21 20:00 02/27/21 19:31 Amoxicillin/ Clavulanate Potassium (Augmentin) 875 mg BID PO 02/23/21 09:00 02/27/21 21:01 DC 02/27/21 22:04 Aspirin (Ecotrin) 81 mg DAILY PO 02/23/21 09:00 02/27/21 09:12 Atorvastatin Calcium (Lipitor) 80 mg DAILY PO 02/23/21 09:00 02/27/21 09:13 Bisacodyl (Dulcolax Suppository) 10 mg DAILYPRN PRN [place] CONSTIPATION 02/22/21 14:50 Docusate Sodium (Colace) 100 mg BID PO 02/22/21 21:00 Famotidine (Pepcid) 20 mg BID PO 02/27/21 21:00 02/27/21 14:06 DC Famotidine (Pepcid) 20 mg DAILY PO 02/28/21 09:00 Famotidine (Pepcid) 20 mg DAILY PO 02/23/21 09:00 02/27/21 11:26 DC 02/27/21 09:13 Fluticasone Propionate (Flovent Hfa 110 Mcg) 2 puff RBID INH 02/22/21 20:00 02/27/21 19:31 Guaifenesin (Robitussin Tab) 400 mg BID PO 02/22/21 21:00 02/27/21 09:12 Home Med (Med Rec Complete!) ASDIRECTED XX 02/22/21 16:00 02/22/21 15:59 DC Hydralazine HCl (Apresoline) 25 mg Q6H PO 02/23/21 00:00 02/23/21 17:00 DC 02/23/21 00:15 Lactobacillus Acidophilus (Bacid) 1 ea WMHS PO 02/22/21 18:00 02/27/21 22:04 Levothyroxine Sodium (Synthroid) 88 mcg DAILY@06 PO 02/23/21 06:00 02/27/21 05:45 Losartan Potassium (Cozaar) 25 mg DAILY PO 02/23/21 09:00 02/27/21 09:14 Metoprolol Succinate (TopROL XL) 25 mg DAILY PO 02/23/21 09:00 02/27/21 09:14 Pantoprazole Sodium (Protonix) 40 mg BID PO 02/27/21 21:00 02/27/21 12:13 DC Polyethylene Glycol (Miralax) 1 pkt DAILY PRN PO CONSTIPATION 02/22/21 14:50 Prednisone (Deltasone) 5 mg DAILY PO 02/27/21 09:00 02/27/21 12:58 Senna (Senokot) 1 tab QHS PO 02/22/21 21:00 02/27/21 22:04 Sucralfate (Carafate Suspension) 1 gm AC PO 02/27/21 17:30 02/27/21 17:03 Ticagrelor (Brilinta) 90 mg BID PO 02/22/21 21:00 02/27/21 22:04 Vitamin D (Vitamin D) 2,000 units DAILY PO 02/23/21 09:00 02/27/21 09:13 MONICA CORTEZ MD February 27, 2021 23:24
--- NOTE | 2021-02-27 23:29 | IPNPDOC ---
PM&R Progress Note DATE OF SERVICE: February 27, 2021 Procurement Officer Progress Note Subjective: Patient reporting she would like to drive when she goes home and was counseled on waiting to drive and to discuss further with her PMD and neurology. She r eports feeling more fatigued and thinks it is because she has not bene on low dose prednisone since being admitted to [facility] which she takes for polymyalgia rheumatica. REVIEW OF SYSTEMS: The following is a completed review of systems and has been reviewed. Review of systems otherwise unremarkable. PAIN: Patient self reports no pain EYES: No recent vision changes. EARS, NOSE, & THROAT:+ dysphagia CARDIOVASCULAR: Denies chest pain or palpitations PULMONARY: Denies shortness of breath GASTROINTESTINAL: Denies constipation/diarrhea GENITOURINARY: denies dysuria MUSCULOSKELETAL: left sided paresis NEUROLOGICAL: left sided paresis HEMATOLOGICAL: denies easy bruising SKIN:intact PSYCHIATRIC: Unremarkable All other review of systems found to be negative. PHYSICAL EXAMINATION: VITAL SIGNS: Please see below. GENERAL: Pleasant and cooperative. No acute distress. thin HEENT: PERRL. Extraocular movements intact. Clear conjunctiva CARDIOVASCULAR: Regular rate and rhythm. No murmurs, rubs, or gallops LUNGS: Clear to auscultation bilaterally. No wheezes. No rhonchi ABDOMEN: Soft, nontender, nondistended. Positive bowel sounds. Normal active bowel sounds NEUROLOGICAL: Alert and oriented times three. Cranial nerves II through XII grossly intact. 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 5-/5 strength in left lower extremity. LABORATORY DATA: Please see below. ASSESSMENT:75-year-old F with past medical history of laryngeal cancer s/p radiation, COPD who presents status post right MCA stroke s/p right ICA stenting PLAN: 1. 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 Neuro- right MCA infarct s/p right ICA stenting 02-15-21, c/u ASA and damian llinta, statin as well for secondary stroke prevention 3. CArdiac- hx of HTN c/u BP meds -Hx of CAd s/p stent on ASA 4. Resp- aspirations s/p 5 days Zosyn, stopping Augmentin, monitor for worsening infection- Combivent, incentive spirometry, guaifenesin -right upper lobe mass- patient reporting she is planning to follow-up with pulmonology clinic at [facility] on d/c -COPD- c/u flovent 5. endo- hypothyroidism c/ u synthroid 6. GI ppx- pepcid, will add sucralfate to help prevent GI bleed while on ASA, brillinta, and prednisone 7. DVT ppx- lovenox 8. Pain- tylenol prn 9. Rheum- hx of Polymylagia rheumatica, patient requesting to go back on prednison 5mg daily as she is feeling more fatigued 10. Dispo- 02-28-21 to to home, progressing towards goals Allergies Coded Allergies: cefazolin (Verified Adverse Reaction, Mild, N/V, 02/22/21) Vital Signs Vital Signs Date Time Temp Pulse Resp B/P (MAP) Pulse Ox O2 Delivery O2 Flow Rate FiO2 02/27/21 20:30 97.6 92 18 153/73 (99) 94 Room Air Laboratory Data CBC/BMP Laboratory Tests 02/27/21 07:12 02/27/21 07:13 Labs 24H Laboratory Tests 2 02/27/21 07:12: Anion Gap 8, Glomerular Filtration Rate 56.6, Calcium Level 8.9 02/27/21 07:13: Immature Granulocyte % (Auto) 0.6, Neutrophils (%) (Auto) 70.3H, Lymphocytes (%) (Auto) 15.0L, Monocytes (%) (Auto) 8.8H, Eosinophils (%) (Auto) 4.5H, Basophils (%) (Auto) 0.8, Neutrophils # (Auto) 4.5, Lymphocytes # (Auto) 1.0L, Monocytes # (Auto) 0.6, Eosinophils # (Auto) 0.3, Basophils # (Auto) 0.1, Nucleated Red Blood Cells % (auto) 0.0 Current Medications Current Medications Current Medications Medications (Trade) Dose Ordered Sig/Tess Route PRN Reason Start Time Stop Time Status Last Admin Dose Admin Acetaminophen (Tylenol Tab) 650 mg Q4HP PRN PO MILD PAIN (PS 1-4) 02/22/21 14:50 Albuterol/ Ipratropium (Combivent Respimat 100-20mcg) 1 puff RTID INH 02/22/21 20:00 02/27/21 19:31 Amoxicillin/ Clavulanate Potassium (Augmentin) 875 mg BID PO 02/23/21 09:00 02/27/21 21:01 DC 02/27/21 22:04 Aspirin (Ecotrin) 81 mg DAILY PO 02/23/21 09:00 02/27/21 09:12 Atorvastatin Calcium (Lipitor) 80 mg DAILY PO 02/23/21 09:00 02/27/21 09:13 Bisacodyl (Dulcolax Suppository) 10 mg DAILYPRN PRN WI CONSTIPATION 02/22/21 14:50 Docusate Sodium (Colace) 100 mg BID PO 02/22/21 21:00 Famotidine (Pepcid) 20 mg BID PO 02/27/21 21:00 02/27/21 14:06 DC Famotidine (Pepcid) 20 mg DAILY PO 02/28/21 09:00 Famotidine (Pepcid) 20 mg DAILY PO 02/23/21 09:00 02/27/21 11:26 DC 02/27/21 09:13 Fluticasone Propionate (Flovent Hfa 110 Mcg) 2 puff RBID INH 02/22/21 20:00 02/27/21 19:31 Guaifenesin (Robitussin Tab) 400 mg BID PO 02/22/21 21:00 02/27/21 09:12 Home Med (Med Rec Complete!) ASDIRECTED XX 02/22/21 16:00 02/22/21 15:59 DC Hydralazine HCl (Apresoline) 25 mg Q6H PO 02/23/21 00:00 02/23/21 17:00 DC 02/23/21 00:15 Lactobacillus Acidophilus (Bacid) 1 ea WMHS PO 02/22/21 18:00 02/27/21 22:04 Levothyroxine Sodium (Synthroid) 88 mcg DAILY@06 PO 02/23/21 06:00 02/27/21 05:45 Losartan Potassium (Cozaar) 25 mg DAILY PO 02/23/21 09:00 02/27/21 09:14 Metoprolol Succinate (TopROL XL) 25 mg DAILY PO 02/23/21 09:00 02/27/21 09:14 Pantoprazole Sodium (Protonix) 40 mg BID PO 02/27/21 21:00 02/27/21 12:13 DC Polyethylene Glycol (Miralax) 1 pkt DAILY PRN PO CONSTIPATION 02/22/21 14:50 Prednisone (Deltasone) 5 mg DAILY PO 02/27/21 09:00 02/27/21 12:58 Senna (Senokot) 1 tab QHS PO 02/22/21 21:00 02/27/21 22:04 Sucralfate (Carafate Suspension) 1 gm AC PO 02/27/21 17:30 02/27/21 17:03 Ticagrelor (Brilinta) 90 mg BID PO 02/22/21 21:00 02/27/21 22:04 Vitamin D (Vitamin D) 2,000 units DAILY PO 02/23/21 09:00 02/27/21 09:13 MONICA CORTEZ MD February 27, 2021 23:29
[2021-02-28] MEDS: LEVOTHYROXINE 88MCG TABLET (0.088 MG) PO SCH (05:45)
[2021-02-28 06:00] VITALS: BP 115/55
[2021-02-28] MEDS: COMBIVENT RESPIMAT 100-20MCG INHALER 4GM INH SCH (07:33)
[2021-02-28] MEDS: FLUTICASONE HFA 110 MCG 12 GM INHALER (FLOVENT) INH SCH (07:33)
[2021-02-28] MEDS ORDERED: FAMOTIDINE 20 MG TAB PO SCH (09:00)
[2021-02-28] MEDS: REMEDY PHYTOPLEX Z-GUARD PASTE 113GM TUBE (FROM STOREROOM PRODUCT) TOP SCH (09:00)
[2021-02-28] MEDS: DOCUSATE SODIUM 100MG CAPSULE PO SCH (09:00)
[2021-02-28] MEDS: LACTOBACILLUS ACIDOPHILUS CAP (BACID) PO SCH ×2 (09:17→12:04)
[2021-02-28] MEDS: VITAMIN D 1,000 INTERNATIONAL UNITS TABLET PO SCH (09:17)
[2021-02-28] MEDS: SUCRALFATE SUSP 1GM/10ML UD PO SCH ×2 (09:17→12:04)
[2021-02-28] MEDS: ASPIRIN 81MG ENTERIC TABLET PO SCH (09:18)
[2021-02-28] MEDS: predniSONE 5 MG TAB PO SCH (09:18)
[2021-02-28] MEDS: guaiFENesin 200 MG TAB PO SCH (09:18)
[2021-02-28] MEDS: TICAGRELOR 90 MG TABLET (BRILINTA) PO SCH (09:18)
[2021-02-28] MEDS: ATORVASTATIN 20 MG TAB PO SCH (09:18)
[2021-02-28 09:19] VITALS: BP 120/67
[2021-02-28] MEDS: METOPROLOL SUCC *XL* 25MG TAB (TopROL *XL*) PO SCH (09:19)
[2021-02-28] MEDS: LOSARTAN 25 MG TAB PO SCH (09:19)
[2021-02-28] MEDS ORDERED: SUCR1ORA PO (10:33)
[2021-02-28] MEDS ORDERED: PEPC1TAB5 PO (10:33)
--- NOTE | 2021-02-28 11:47 | PMRDS ---
NAME: WALE KUMAR [facility] WT ID#: [id number] : [id number] JOB: [id number] ELIAS: 02/28/2021 ACCT: [id number] DOCTOR: MONICA CORTEZ MD PMR DISCHARGE SUMMARY DATE OF ADMISSION: 02/22/2021 DATE OF DISCHARGE: 02/28/2021 CHIEF COMPLAINT/DISCHARGE DIAGNOSIS: Stroke. HISTORY OF PRESENT ILLNESS: This is a 75-year-old female with a past medical history of COPD, hypertension, diabetes, CAD, status post stents, hypothyroidism, laryngeal cancer; status post radiation, chronic dysphagia, Ward's esophagus with multiple esophageal dilatations, who was admitted to [facility] on 02/06/2021 with left-sided weakness and diagnosed with stroke in the setting of right ICA stenosis. MRI showed "findings consistent with small distal branch acute, likely embolic ischemic infarct involving the right frontal parietal and parietal occipital regions. A few small scattered acute infarcts in the deep white matter tracts is also present." She underwent right ICA stenting on 02/15/2021 and was started on aspirin and Brilinta for 6 months. She developed an aspiration pneumonia requiring supplemental oxygen and was started on I.V. Zosyn with CT thorax showing a right upper lobe mass with bronchus obstruction. She was instructed to follow-up with her thoracic surgeon in the [facility] for wedge resection versus lobectomy in February of 2021. She had mobility and ADLs impairments, and deemed medically appropriate for discharge to ARU on 02/22/2021, PAST MEDICAL HISTORY: As per HPI. HOSPITAL COURSE: Patient was admitted and enrolled in a comprehensive PT/OT, speech, language pathology program. She received 24-hour nursing supervision and weekly team meetings were held to discuss her progress. Patient was followed speech language pathology and continued on a dysphagia diet. She completed a course of Augmentin for aspiration pneumonia with no signs of worsening infection. Patient requested to be restarted on her home dose of prednisone 5 mg daily due to history of polymyalgia rheumatica. She was restarted on prednisone prior to discharge and Sucralfate was added to her GI prophylaxis regimen. Patient did very well in therapy, made significant and rapid gains, and was deemed medically and functionally stable to return home. DISCHARGE MEDICATIONS: As per instructions. FUNCTIONAL HISTORY: On discharge the patient was independent for ambulation, functional transfers and ADLs. Thank you for this referral.
[2021-02-28 14:00] VITALS: BP 128/60
== END 2021-02-28 15:05 | disposition home or self-care (01) | DRG 57 ==
LOC: M PM&R 15:41
PROVIDERS: ADMIT Physical Medicine & Rehabilitation; ATTEND Physical Medicine & Rehabilitation
DX: I69.354 Hemiplegia and hemiparesis following cerebral infarction affecting left non-dominant side (principal); R13.10 Dysphagia, unspecified; J44.9 Chronic obstructive pulmonary disease, unspecified; I10 Essential (primary) hypertension; I25.10 Atherosclerotic heart disease of native coronary artery without angina pectoris; E03.9 Hypothyroidism, unspecified; K22.70 Barrett's esophagus without dysplasia; Z95.5 Presence of coronary angioplasty implant and graft; Z85.21 Personal history of malignant neoplasm of larynx; Z74.09 Other reduced mobility; Z74.1 Need for assistance with personal care; Z79.899 Other long term (current) drug therapy; Z88.8 Allergy status to other drugs, medicaments and biological substances; R91.8 Other nonspecific abnormal finding of lung field; K21.9 Gastro-esophageal reflux disease without esophagitis